=== PATIENT | male | born 1960 | race Caucasian/White ===

== ENCOUNTER 2021-11-30 13:14 | Outpatient (CLI) | payer BC, SELFPAY ==
[2021-11-30 06:58] VITALS: BMI 37.5
[2021-11-30 13:45] VITALS: BP 135/82; PULSE 67; RESP 17; TEMP 36.8; O2SAT 97
[2021-11-30 14:32] VITALS: BP 136/77; PULSE 71; RESP 18; TEMP 36.6; O2SAT 97
[2021-11-30 15:32] VITALS: BP 126/76; PULSE 71; RESP 18; TEMP 36.6; O2SAT 96
== END 2021-11-30 13:15 | disposition home or self-care (01) ==
LOC: OPS 13:17
PROVIDERS: PCP Nurse Practitioner Family; Visit Provider Nurse Practitioner Family
DX: U07.1 COVID-19 (principal)
CPT/HCPCS: 96365